=== PATIENT | female | born 2000 | race Caucasian/White ===

== ENCOUNTER 2021-12-11 12:34 | Emergency (ER) | payer OTHER ==
[~2021-12-11] VITALS: Ht 162.6 cm; Wt 66.0 kg
[2021-12-11 13:02] VITALS: BP 123/87
== END 2021-12-11 16:37 | disposition left against medical advice (07) ==
LOC: ER 12:34
DX: Z53.21 Procedure and treatment not carried out due to patient leaving prior to being seen by health care provider (principal)